=== PATIENT | male | born 1985 | race Caucasian/White ===

== ENCOUNTER 2017-11-07 19:27 | Emergency (ER) | payer SELFPAY ==
[~2017-11-07] VITALS: Ht 177.8 cm; Wt 74.8 kg
--- NOTE | 2017-11-07 21:01 | NUR ---
Patient discharged to home in stable conditon. Written and verbal after care instructions given. Patient verbalizes understanding of instructions.
== END 2017-11-07 21:05 | disposition home or self-care (01) ==
LOC: ER 19:27
DX: H93.11 Tinnitus, right ear (principal)
CPT/HCPCS: A4663